=== PATIENT | male | born 1940 | race Caucasian/White ===

== ENCOUNTER 2016-08-04 12:00 | Emergency (ER) | payer OTHER, BC ==
[~2016-08-04] VITALS: Ht 175.3 cm; Wt 105.0 kg
[~2016-08-04 12:00] MED LIST: CARVEDILOL25 MG PO; CYANOCOBALAM1000 MCG; DICYCLOMINE HCL10 MG PO; GABAPENTIN300 MG PO; GLUCOPHAGE1000 MG PO; K-TAB10 MEQ PO; LEVOTHROID100 MCG PO; LISINOPRIL20 MG PO; METAMUCIL CAPSU1 CAP PO; OMEGA 3 1,0001 EACH PO; PANTOPRAZOLE SO40 MG PO; PRAVASTATIN SOD40 MG PO; VENTOLIN HFA18 GM IH; VITAMIN D1000 UNIT PO; VITAMIN E400 UNIT PO; ZOFRAN ODT4 MG PO
[2016-08-04 13:43] LABS: ADD MIUA? YES; BILIRUBIN NEGATIVE; BLOOD NEGATIVE; COLOR YELLOW ((YELLOW)); GLUCOSE (STRIP) NEGATIVE; KETONES NEGATIVE; LEUKOCYTES NEGATIVE; NITRITE NEGATIVE; PROTEIN (STRIP) NEGATIVE; SPECIFIC GRAVITY 1.006 (1.000-1.030); UROBILINOGEN 0.2 MG/DL (0.2-1.0)
[2016-08-04 13:46] LABS: BACTERIA NONE SEEN /HPF; EPITHELIAL CELLS NONE SEEN /HPF; MUCUS TRACE /LPF; RED BLOOD CELLS 0-5 /HPF (0-5); WHITE BLOOD CELLS 0-5 /HPF (0-5)
[2016-08-04] MEDS ORDERED: NORCO 5/3251 TABLET PO (14:02)
[2016-08-04 14:15] VITALS: BP 146/90
== END 2016-08-04 14:15 | disposition home or self-care (01) ==
LOC: EME 12:00
PROVIDERS: Nurse Practitioner Family
DX: M54.16 Radiculopathy, lumbar region (principal); M54.41 Lumbago with sciatica, right side; E11.9 Type 2 diabetes mellitus without complications; I10 Essential (primary) hypertension; Z87.442 Personal history of urinary calculi
CPT/HCPCS: 72110; 81003; 99281; 99283

== ENCOUNTER → 2017-08-10 | Outpatient (CLI) | payer OTHER, BC ==
[~2017-08-10] MED LIST changes: +NORCO 5/3251 TABLET PO
== END | disposition home or self-care (01) ==
LOC: NUC 09:31
DX: M19.011 Primary osteoarthritis, right shoulder (principal); M19.012 Primary osteoarthritis, left shoulder; M17.0 Bilateral primary osteoarthritis of knee; M47.894 Other spondylosis, thoracic region
CPT/HCPCS: 78306; A9503

== ENCOUNTER 2017-09-19 23:05 | Emergency (ER) | payer OTHER, BC ==
[~2017-09-19] VITALS: Ht 175.3 cm; Wt 106.8 kg
[2017-09-20 01:37] LABS: APPEARANCE CLEAR ((CLEAR)); BILIRUBIN NEGATIVE; BLOOD SMALL; COLOR COLORLESS ((YELLOW)); GLUCOSE (STRIP) NEGATIVE; KETONES NEGATIVE; LEUKOCYTES NEGATIVE; NITRITE NEGATIVE; PROTEIN (STRIP) NEGATIVE; SPECIFIC GRAVITY 1.001 (1.000-1.030); UROBILINOGEN 0.2 MG/DL (0.2-1.0)
[2017-09-20 01:39] LABS: BACTERIA NONE SEEN /HPF; EPITHELIAL CELLS NONE SEEN /HPF; MUCUS NONE SEEN /LPF; RED BLOOD CELLS 0-5 /HPF (0-5); UCUL ADDED? NO; WHITE BLOOD CELLS 0-5 /HPF (0-5)
[2017-09-20 03:03] VITALS: BP 118/64
== END 2017-09-20 03:03 | disposition home or self-care (01) ==
LOC: EME 23:05
PROVIDERS: Emergency Medicine
PROC: 0T9B70Z Drainage of Bladder with Drainage Device, Via Natural or Artificial Opening (ICD-10-PCS; principal; 2017-09-19)
DX: R33.9 Retention of urine, unspecified (principal); R10.9 Unspecified abdominal pain; Z98.890 Other specified postprocedural states; Z85.46 Personal history of malignant neoplasm of prostate; Z85.828 Personal history of other malignant neoplasm of skin; Z85.858 Personal history of malignant neoplasm of other endocrine glands; Z87.442 Personal history of urinary calculi; I10 Essential (primary) hypertension; E78.5 Hyperlipidemia, unspecified; E11.9 Type 2 diabetes mellitus without complications; Z79.84 Long term (current) use of oral hypoglycemic drugs; Z88.2 Allergy status to sulfonamides
CPT/HCPCS: 81003; 99281; 99284